=== PATIENT | female | born 1945 | race Caucasian/White ===

== ENCOUNTER 2019-10-20 07:13 | Day surgery (SDC) | payer MEDICARE, MEDICAID ==
[~2019-10-20] VITALS: Ht 152.4 cm; Wt 65.8 kg
[2019-10-20] MEDS ORDERED: CIPROFLOXACIN 0.3% OPHTH SOLN 2.5ML RIGHTEYE SCH (07:45)
[2019-10-20] MEDS ORDERED: LACTATED RINGERS 1,000 ML IV SCH (08:00)
[2019-10-20] MEDS ORDERED: TOBRAMYCIN SULFATE 80MG/2ML 30ML ONE (08:15)
[2019-10-20] MEDS ORDERED: METHYLPREDNISOLONE SOD SUCC 40 MG/ML VIAL ONE (08:16)
[2019-10-20] MEDS ORDERED: PROPOFOL 200MG/20ML VIAL IV ONE (09:22)
[2019-10-20] MEDS ORDERED: HYDRALAZINE 20MG/ML VIAL ONE (09:26)
[2019-10-20] MEDS ORDERED: HYDR12.54 PO (09:52)
[2019-10-20] MEDS ORDERED: ERGO400C PO (09:52)
[2019-10-20] MEDS ORDERED: OMEP20TA2 PO (09:52)
[2019-10-20] MEDS ORDERED: LOSA50TA41 PO (09:52)
[2019-10-20] MEDS ORDERED: ACET650T37 PO (09:53)
[2019-10-20] MEDS ORDERED: ACETAMINOPHEN 500MG TABLET ONE (10:27)
[2019-10-20] MEDS ORDERED: ACETAMINOPHEN 500MG TABLET PO ONE (10:30)
[2019-10-20] MEDS ORDERED: ACETAMINOPHEN 325MG TABLET PO ONE (10:30)
[2019-10-20] MEDS ORDERED: ACETAMINOPHEN 500MG TABLET PO SCH (10:45)
[2019-10-20] MEDS ORDERED: LIDOCAINE HCL 2%/EPINEPHRINE 1:100,000 20 ML VIAL INFIL ONE (16:23)
[2019-10-20] MEDS ORDERED: BALANCED SALT IRRIG SOLN 15ML ONE (16:23)
[2019-10-20] MEDS ORDERED: NEO/POLYMYX B SULF/DEXAMETH OPHTH OINT 3.5GM ONE (16:23)
[2019-10-20] MEDS ORDERED: CIPROFLOXACIN 0.3% OPHTH SOLN 2.5ML ONE (16:23)
[2019-10-20] MEDS ORDERED: TETRACAINE 0.5% OPHTH DROPS 4ML ONE (16:23)
[2019-10-20] MEDS ORDERED: BUPIVACAINE HCL/PF 0.75% (7.5MG/ML) 10ML ONE (16:23)
== END 2019-10-20 11:00 | disposition home or self-care (01) ==
LOC: OR 07:13
PROVIDERS: ATTEND Ophthalmology
DX: H11.001 Unspecified pterygium of right eye (principal); I10 Essential (primary) hypertension; E66.9 Obesity, unspecified; Z79.899 Other long term (current) drug therapy; Z68.29 Body mass index [BMI] 29.0-29.9, adult; Z85.3 Personal history of malignant neoplasm of breast; Z98.890 Other specified postprocedural states
CPT/HCPCS: 65420; 88304; J0360; J2704; J2920; J3260; J3490

== ENCOUNTER → 2021-07-09 | Outpatient (CLI) | payer MEDICARE, MEDICAID ==
[~2021-07-09] MED LIST: ACET650T37 PO; ATOR10TA69 PO; CHOL100036 PO; ERGO400C PO; HYDR12.54 PO; LORA10TA7 MT; LOSA50TA41 PO; NEOM7.5D8 EACHEYE; OMEP20TA2 PO
== END | disposition home or self-care (01) ==
LOC: LAB 11:42
PROVIDERS: ATTEND Ophthalmology
DX: Z01.812 Encounter for preprocedural laboratory examination (principal); Z20.822 Contact with and (suspected) exposure to COVID-19
CPT/HCPCS: 87426

== ENCOUNTER → 2021-07-11 | Day surgery (SDC) | payer MEDICARE, MEDICAID ==
[~2021-07-11] VITALS: Ht 152.4 cm; Wt 66.0 kg
[~2021-07-11] MED LIST changes: +ACETAMINOPHEN WITH CODEINE 300/30MG TABLET PO SCH; +BALANCED SALT IRRIG SOLN 15ML ONE; +BUPIVACAINE HCL/PF 0.75% (7.5MG/ML) 10ML ONE; +CIPROFLOXACIN 0.3% OPHTH SOLN 2.5ML ONE; +LACTATED RINGERS 1,000 ML IV SCH; +LIDOCAINE HCL 2%/EPINEPHRINE 1:100,000 20 ML VIAL INFIL ONE; +METHYLPREDNISOLONE SOD SUCC 40 MG/ML VIAL ONE; +MIDAZOLAM HCL 2 MG/2 ML VIAL ONE; +NEO/POLYMYX B SULF/DEXAMETH OPHTH OINT 3.5GM ONE; +PROPOFOL 200MG/20ML VIAL IV ONE; +TETRACAINE 0.5% OPHTH DROPS 4ML ONE; +TOBRAMYCIN SULFATE 80MG/2ML 30ML ONE; +TOBRAMYCIN/DEXAMETH 0.1/0.3% OPHTH SUSP 2.5ML ONE
[2021-07-11 11:21] VITALS: BP 146/63
== END | disposition home or self-care (01) ==
LOC: OR 06:51
PROVIDERS: ATTEND Ophthalmology
DX: H11.001 Unspecified pterygium of right eye (principal); I10 Essential (primary) hypertension; Z85.3 Personal history of malignant neoplasm of breast; Z79.899 Other long term (current) drug therapy; Z98.890 Other specified postprocedural states; Z88.0 Allergy status to penicillin; Z88.1 Allergy status to other antibiotic agents; Z88.8 Allergy status to other drugs, medicaments and biological substances
CPT/HCPCS: 65420; J2250; J2704; J2920; J3260; J3490

== ENCOUNTER 2024-08-02 09:33 | Emergency (ER) | payer MEDICARE, MEDICAID ==
[~2024-08-02] VITALS: Ht 152.4 cm; Wt 64.0 kg
[~2024-08-02 09:33] MED LIST changes: +ACET-3163 PO; -ACET650T37 PO; -ACETAMINOPHEN WITH CODEINE 300/30MG TABLET PO SCH; -BALANCED SALT IRRIG SOLN 15ML ONE; -BUPIVACAINE HCL/PF 0.75% (7.5MG/ML) 10ML ONE; -CIPROFLOXACIN 0.3% OPHTH SOLN 2.5ML ONE; -ERGO400C PO; -LACTATED RINGERS 1,000 ML IV SCH; -LIDOCAINE HCL 2%/EPINEPHRINE 1:100,000 20 ML VIAL INFIL ONE; -METHYLPREDNISOLONE SOD SUCC 40 MG/ML VIAL ONE; -MIDAZOLAM HCL 2 MG/2 ML VIAL ONE; -NEO/POLYMYX B SULF/DEXAMETH OPHTH OINT 3.5GM ONE; -OMEP20TA2 PO; -PROPOFOL 200MG/20ML VIAL IV ONE; -TETRACAINE 0.5% OPHTH DROPS 4ML ONE; -TOBRAMYCIN SULFATE 80MG/2ML 30ML ONE; -TOBRAMYCIN/DEXAMETH 0.1/0.3% OPHTH SUSP 2.5ML ONE
[2024-08-02 09:45] VITALS: O2SAT 99
[2024-08-02 10:58] LABS: BASOPHILS % 1.8 % (0.0-2.0); EOSINOPHILS % 1.8 % (0.0-5.0); HEMATOCRIT. 39.4 % (36.0-48.0); HEMOGLOBIN. 13.2 g/dL (12.0-16.0); LYMPHOCYTES % 30.8 % (20.0-50.0); MEAN CORPUSCULAR HEMOGLOBIN 29.2 pg (28.0-32.0); MEAN CORPUSCULAR HGB CONC 33.5 g/dL (31.0-37.0); MEAN CORPUSCULAR VOLUME 87.2 fL (81.0-99.0); MEAN PLATELET VOLUME 7.2 fl (7.4-10.4); MONOCYTES % 5.9 % (2.0-8.0); NEUTROPHILS % 59.7 % (40.0-76.0); PLATELET 235 x1000/uL (130-400); RED BLOOD CELL COUNT 4.52 mill/uL (4.2-5.4); RED CELL DISTRIBUTION WIDTH 13.9 % (11.6-14.6); WHITE BLOOD COUNT 6.3 x1000/uL (4.5-11.0)
[2024-08-02 11:09] LABS: POTASSIUM 3.7 mEq/L (3.5-5.1)
[2024-08-02 11:10] LABS: CALCIUM 9.8 mg/dL (8.7-10.4); PROTHROMBIN TIME 11.4 sec (9.6-11.0)
[2024-08-02] MEDS: ACETAMINOPHEN 325MG TABLET PO ONE (12:21)
[2024-08-02] MEDS ORDERED: TOPUD MT (12:33)
[2024-08-02] MEDS ORDERED: IBUP-1523 MT (12:33)
[2024-08-02 12:41] VITALS: BP 155/90; PULSE 69; RESP 18; TEMP 36.44736; O2SAT 99
[2024-08-02 12:44] LABS: CLARITY URINE CLEAR (CLEAR); COLOR URINE YELLOW (YELLOW); GLUCOSE URINE NEGATIVE (NEGATIVE); KETONES URINE NEGATIVE (NEGATIVE); LEUKOCYTE ESTERASE URINE TRACE (NEGATIVE); NITRITE URINE NEGATIVE (NEGATIVE); OCCULT BLOOD URINE NEGATIVE (NEGATIVE); PROTEIN URINE NEGATIVE (NEGATIVE); SPECIFIC GRAVITY URINE 1.012 (1.005-1.030); UROBILINOGEN URINE 0.2 E.U./dL (0.2-1.0)
[2024-08-02 13:52] LABS: BACTERIA URINE TRACE; RBC URINE NONE SEEN /hpf (0-2); SQUAMOUS EPITHELIAL CELL URINE NONE SEEN /lpf (RARE/1+); WBC URINE 0-2 /hpf (0-2)
== END 2024-08-02 12:40 | disposition home or self-care (01) ==
LOC: ER 10:06
DX: I10 Essential (primary) hypertension (principal); M25.561 Pain in right knee; M25.562 Pain in left knee; Z88.8 Allergy status to other drugs, medicaments and biological substances; Z79.899 Other long term (current) drug therapy
CPT/HCPCS: 36415; 80048; 81003; 85025; 93971; 99284